=== PATIENT | female | born 1940 | race Caucasian/White ===

== ENCOUNTER → 2018-10-14 | Outpatient (CLI) | payer MEDICARE, OTHER ==
[~2018-10-14] MED LIST: ALEN70 PO; ANAS1 PO; CALCA500CH PO; CALCAVITD PO; DIGO.125 PO; ELIQUIS5 MG PO; GABA100; METO100ER PO; MULVITMIND PO
[2018-10-16 12:07] LABS: HPV 16 Negative (Negative); HPV 18 Negative (Negative); HPV OTHER HR TYPES Negative (Negative)
== END ==
LOC: LAB SHORT 11:29 → LAB 11:29
PROVIDERS: Nurse Practitioner Obstetrics & Gynecology
DX: Z91.89 Other specified personal risk factors, not elsewhere classified (principal)
CPT/HCPCS: 87624; G0123

== ENCOUNTER 2019-07-29 08:16 | Day surgery (SDC) | payer MEDICARE, OTHER ==
[~2019-07-29] VITALS: Ht 165.1 cm; Wt 69.7 kg
[~2019-07-29 08:16] MED LIST changes: +ALEN70; +ALLO300
== END 2019-07-29 10:14 | disposition home or self-care (01) ==
LOC: ORSCSDS 08:16
PROVIDERS: Surgery
PROC: 0DJD8ZZ Inspection of Lower Intestinal Tract, Via Natural or Artificial Opening Endoscopic (ICD-10-PCS; principal; 2019-07-29 10:45)
DX: Z85.038 Personal history of other malignant neoplasm of large intestine (principal); I48.91 Unspecified atrial fibrillation; I10 Essential (primary) hypertension; Z79.01 Long term (current) use of anticoagulants; Z79.899 Other long term (current) drug therapy
CPT/HCPCS: J2704; J7120

== ENCOUNTER 2020-09-14 11:03 | Day surgery (SDC) | payer MEDICARE, OTHER ==
[~2020-09-14] VITALS: Ht 165.1 cm; Wt 72.9 kg
== END 2020-09-14 13:08 | disposition home or self-care (01) ==
LOC: ORSCSDS 11:03
PROVIDERS: Surgery
PROC: 0DBL8ZX Excision of Transverse Colon, Via Natural or Artificial Opening Endoscopic, Diagnostic (ICD-10-PCS; principal; 2020-09-14 12:30)
PROC: 0DBN8ZX Excision of Sigmoid Colon, Via Natural or Artificial Opening Endoscopic, Diagnostic (ICD-10-PCS; principal; 2020-09-14 12:30)
DX: Z85.038 Personal history of other malignant neoplasm of large intestine (principal); Z15.09 Genetic susceptibility to other malignant neoplasm; K63.5 Polyp of colon; D12.3 Benign neoplasm of transverse colon; K57.30 Diverticulosis of large intestine without perforation or abscess without bleeding; Z79.899 Other long term (current) drug therapy
CPT/HCPCS: 88305; J2704; J7120

== ENCOUNTER 2023-10-19 09:14 | Day surgery (SDC) | payer MEDICARE, OTHER ==
[~2023-10-19] VITALS: Ht 165.1 cm; Wt 96.3 kg
[~2023-10-19 09:14] MED LIST changes: +ATOR40TA PO; +Amlodipine Bes2.5 MG PO; +Lactated Ringer's 1,000 ML IV ONE; +propofoL 50 ML IV ONE
[2023-10-19] MEDS ORDERED: Lactated Ringer's 1,000 ML IV ONE (10:15)
[2023-10-19] MEDS ORDERED: ePHEDrine Sulfate 50 MG/ML 1ML Injection ONE (11:37)
[2023-10-19 12:34] VITALS: BP 137/92
== END 2023-10-19 12:31 | disposition home or self-care (01) ==
LOC: ORSCSDS 09:14
PROVIDERS: Internal Medicine Gastroenterology
PROC: 0DBK8ZX Excision of Ascending Colon, Via Natural or Artificial Opening Endoscopic, Diagnostic (ICD-10-PCS; principal; 2023-10-19 10:30)
PROC: 0DBL8ZX Excision of Transverse Colon, Via Natural or Artificial Opening Endoscopic, Diagnostic (ICD-10-PCS; principal; 2023-10-19 10:30)
DX: K62.5 Hemorrhage of anus and rectum (principal); R63.4 Abnormal weight loss; D12.2 Benign neoplasm of ascending colon; D12.3 Benign neoplasm of transverse colon; K63.5 Polyp of colon; Z15.09 Genetic susceptibility to other malignant neoplasm; K57.30 Diverticulosis of large intestine without perforation or abscess without bleeding; K64.8 Other hemorrhoids; Z80.0 Family history of malignant neoplasm of digestive organs; Z85.3 Personal history of malignant neoplasm of breast; Z85.42 Personal history of malignant neoplasm of other parts of uterus; Z85.828 Personal history of other malignant neoplasm of skin; Z85.89 Personal history of malignant neoplasm of other organs and systems; I48.91 Unspecified atrial fibrillation; Z79.01 Long term (current) use of anticoagulants; I10 Essential (primary) hypertension; Z85.51 Personal history of malignant neoplasm of bladder
CPT/HCPCS: 88305; J2704; J7120

== ENCOUNTER 2024-07-29 07:26 | Day surgery (SDC) | payer MEDICARE, OTHER ==
[2024-07-29] VITALS (14 sets, daily range): BP systolic 101–149; BP diastolic 48–82
[~2024-07-29] VITALS: Ht 165.1 cm; Wt 66.5 kg
[~2024-07-29 07:26] MED LIST changes: +ACET500 PO; +ALLO100 PO; +CENTRUM SILVER1 EAC2 PO; +CIDAFLEX TABLE1 EAC1 PO; +COQ-10100 MG PO; -DIGO.125 PO; +FIBER GUMMIES PO; +GERITOL COMPLETE PO; +LANOXIN PO; -Lactated Ringer's 1,000 ML IV ONE; +PREBIOTIC FIBER2 GM PO; +TOPROL XL25 MG PO; -propofoL 50 ML IV ONE
[2024-07-29] MEDS ORDERED: Ropivacaine 0.5% HCl/Pf 123.125 MG,EPINEPHrine HCL 0.25 MG,Ketorolac Tromethamine 15 MG... INFIL SCH (07:40)
[2024-07-29] MEDS ORDERED: Chlorhexidine Mouth Care 15 ML UDC MT SCH (07:40)
[2024-07-29] MEDS ORDERED: CeFAZolin Sodium 2,000 MG in NS 100 ML IV SCH ×2 (07:40→19:00)
[2024-07-29] MEDS ORDERED: Tranexamic Acid 1,000 MG in NS 100 ML IV SCH (07:40)
[2024-07-29] MEDS ORDERED: Acetaminophen 500 MG Tab PO SCH ×2 (07:40→16:00)
[2024-07-29] MEDS ORDERED: Lactated Ringer's 1,000 ML IV SCH ×2 (07:40→09:55)
[2024-07-29] MEDS ORDERED: OxyCODONE HCL 10 MG TABCR PO SCH (07:40)
[2024-07-29] MEDS ORDERED: CeFAZolin Sodium 2,000 MG VIAL ONE (08:52)
--- NOTE | 2024-07-29 08:58 | NUR ---
History, Chart, Medications and Allergies reviewed before start of procedure. Patient confirms NPO status and agrees with scheduled surgery. Patient chooses to store glasses in personal bag. All bags labeled with patient's name and stored under gurney.
[2024-07-29] MEDS ORDERED: propofoL 0 ML IV ONE (09:24)
[2024-07-29] MEDS ORDERED: FentaNYL Citrate 50 MCG/ML 2 ML Injection ONE (09:30)
[2024-07-29] MEDS ORDERED: Metoclopramide HCl 5MG / ML 2ML Vial IV PRN (09:55)
[2024-07-29] MEDS ORDERED: HYDROmorphone HCl/Pf 1MG SYR IV PRN (09:55)
[2024-07-29] MEDS ORDERED: OxyCODONE HCL 5 MG TAB PO PRN ×2 (09:55→10:05)
[2024-07-29] MEDS ORDERED: Magnesium Hydroxide Conc 10 ML UDC PO PRN (09:55)
[2024-07-29] MEDS ORDERED: Ondansetron HCl 2 MG / ML 2ML Vial IV PRN (09:55)
[2024-07-29] MEDS ORDERED: DiphenhydrAMINE HCL 25 MG Cap PO PRN (10:00)
[2024-07-29] MEDS ORDERED: Bisacodyl 10 MG Supp PR PRN (10:00)
[2024-07-29] MEDS ORDERED: FLU VACC TS2024-25(6MOS UP)/PF 45 MCG/0.5 ML SYRINGE IM SCH (10:00)
--- NOTE | 2024-07-29 10:00 | NUR ---
IV ACCESS ATTEMPTS X2 FOR THIS RN, X3 FOR ROBYN ROLLINS RN, MAKING X5 TOTAL ATTEMPTS.
[2024-07-29] MEDS ORDERED: Promethazine HCl 25 MG Tab PO PRN (10:05)
[2024-07-29] MEDS ORDERED: propofoL 100 ML IV ONE (11:05)
[2024-07-29] MEDS ORDERED: Midazolam HCl 1MG / ML 2ML Vial ONE (11:05)
[2024-07-29] MEDS ORDERED: Ketorolac Tromethamine 15mg Vial IV SCH (12:00)
[2024-07-29] MEDS ORDERED: Digoxin 0.125 MG Tab PO SCH ×2 (18:00→21:00)
[2024-07-29] MEDS ORDERED: Metoprolol Succinate 50 MG TABCR PO SCH ×2 (18:00→21:00)
--- NOTE | 2024-07-29 20:01 | NUR ---
SHIFT SUMMARY WAS VERY GROGGY INITIALLY POST OP. AFTER SLEEPING FOR AWHILE WOKE UP WELL & WAS ABLE TO WORK w/ THERAPY. ABLE TO EAT A SMALL DINNER & VOIDED.
[2024-07-29] MEDS ORDERED: AmLODIPine Besylate 5 MG Tab PO SCH (21:00)
[2024-07-29] MEDS ORDERED: Allopurinol 100 MG Tab PO SCH (21:00)
[2024-07-29] MEDS ORDERED: Atorvastatin 40 MG Tab PO SCH (21:00)
[2024-07-29] MEDS ORDERED: Docusate Sodium 100 MG Cap PO SCH (21:00)
[2024-07-30 03:12] VITALS: BP 135/59
--- NOTE | 2024-07-30 04:40 | NUR ---
NOC SUMMARY- PT PAIN MANAGED WELL. PT AMBULATORY WITH GB AND FWW. PT VOIDING WELL. PT HAS BEEN ABLE TO REST COMFORTABLY. PT DRESSING C/D/I. PT POLAR PACK ON. CALL LIGHT IN REACH.
[2024-07-30 05:07] LABS: BASOPHILS ABSOLUTE AUTO 0.02 K/mm3 (0.00-0.23); BASOPHILS PERCENT AUTO 0 % (0-2); EOSINOPHILS ABSOLUTE AUTO 0.09 K/mm3 (0.00-0.68); EOSINOPHILS PERCENT AUTO 2 % (0-6); Hematocrit 31.3 % (33.0-51.0); Hemoglobin 10.3 g/dL (11.5-16.0); IMMATURE GRAN ABSOLUTE AUTO 0.02 K/mm3 (0.00-0.10); IMMATURE GRAN PERCENT AUTO 0 % (0-1); LYMPHOCYTES ABSOLUTE AUTO 1.09 K/mm3 (0.84-5.20); LYMPHOCYTES PERCENT AUTO 21 % (21-46); MONOCYTES ABSOLUTE AUTO 0.63 K/mm3 (0.16-1.47); MONOCYTES PERCENT AUTO 12 % (4-13); Mean Corpuscular HGB 33.7 pg (26.0-34.0); Mean Corpuscular HGB Conc 32.9 g/dL (31.5-36.5); Mean Corpuscular Volume 102 fL (80-100); Mean Platelet Volume 9.8 fL (9.1-12.4); NEUTROPHILS ABSOLUTE AUTO 3.38 K/mm3 (1.96-9.15); NEUTROPHILS PERCENT AUTO 65 % (41-73); Platelet Count 133 K/mm3 (150-400); RDW Coefficient Variation 13.2 % (11.7-14.2); RDW Standard Deviation 49.5 fL (35.1-46.3); Red Blood Cell Count 3.06 M/mm3 (3.80-5.20); White Blood Cell Count 5.23 K/mm3 (4.00-11.30)
[2024-07-30 05:42] LABS: Bun/Creatinine Ratio 20.2 (12.0-20.0); Calcium, Blood 8.5 mg/dL (8.5-10.1); Creatinine, Blood 0.79 mg/dL (0.40-1.00)
[2024-07-30] MEDS ORDERED: ELIQUIS2.5 MG PO (07:19)
[2024-07-30 07:45] VITALS: BP 134/88
[2024-07-30] MEDS ORDERED: Calcium Carbonate 500 MG Tab Chew PO ONE (08:10)
[2024-07-30] MEDS ORDERED: Multivitamins/Minerals 1 Tab PO SCH (09:00)
[2024-07-30] MEDS ORDERED: Apixaban 5 MG Tab PO SCH (09:00)
--- NOTE | 2024-07-30 10:53 | NUR ---
DISCHARGE SUMMARY POD1 L TKA, A/OX4, VSS, TOLERATING PO, AMBULATING WELL, PAIN WELL MANAGED, AQUACELL C/D/I, MARCEL WRAP OVER AQUACELL DRESSING, COMPRESSION STOCKINGS ON BLE. DISCUSSED DISCHARGE INSTRUCTIONS WITH HER INCLUDING HOME CARE, MEDICATIONS, AND FOLLOW UP APPOINTMENTS, NO QUESTIONS AT THIS TIME, ESCORTED OUT VIA WC TO PRIVATE AUTO TO GO HOME.
== END 2024-07-30 09:35 | disposition home or self-care (01) ==
LOC: ORSCMMR 07:26 → ORD 09:15 → ORSCMMR 11:00 → SURS 13:24 → ORSCMMR 07-30 09:35
PROVIDERS: Orthopaedic Surgery
PROC: 8E0Y0CZ Robotic Assisted Procedure of Lower Extremity, Open Approach (ICD-10-PCS; principal; 2024-07-29 09:15)
PROC: 0SRD0JA Replacement of Left Knee Joint with Synthetic Substitute, Uncemented, Open Approach (ICD-10-PCS; principal; 2024-07-29 09:15)
DX: M17.12 Unilateral primary osteoarthritis, left knee (principal); I48.91 Unspecified atrial fibrillation; Z79.01 Long term (current) use of anticoagulants; E78.5 Hyperlipidemia, unspecified; I12.9 Hypertensive chronic kidney disease with stage 1 through stage 4 chronic kidney disease, or unspecified chronic kidney disease; N18.9 Chronic kidney disease, unspecified; Z15.09 Genetic susceptibility to other malignant neoplasm; Z79.899 Other long term (current) drug therapy; Z85.3 Personal history of malignant neoplasm of breast; Z85.42 Personal history of malignant neoplasm of other parts of uterus; Z85.038 Personal history of other malignant neoplasm of large intestine; Z85.51 Personal history of malignant neoplasm of bladder
CPT/HCPCS: 36415; 73560-LT; 80048; 85025; 97110; 97116; 97161; 97530; A9270; C1713; C1776; J0171; J0690; J0735; J1885; J2250; J2704; J2795; J3010; J7120

== ENCOUNTER 2024-11-21 11:00 | Day surgery (SDC) | payer MEDICARE, OTHER ==
[~2024-11-21] VITALS: Ht 167.6 cm; Wt 65.4 kg
[~2024-11-21 11:00] MED LIST changes: +ELIQUIS2.5 MG PO; +Lactated Ringer's 1,000 ML IV ONE
[2024-11-21] MEDS ORDERED: GLUCHON (11:43)
[2024-11-21] MEDS ORDERED: propofoL 50 ML IV ONE (12:10)
[2024-11-21] MEDS ORDERED: Lactated Ringer's 1,000 ML IV ONE (12:15)
--- NOTE | 2024-11-21 12:35 | NUR ---
11/21/24 1235 Amy Corbett PT. DENIES ANY PAIN.
[2024-11-21 13:21] VITALS: BP 107/69
== END 2024-11-21 16:48 | disposition home or self-care (01) ==
LOC: ORSCSDS 11:00
PROVIDERS: Internal Medicine Gastroenterology
PROC: 0DJD8ZZ Inspection of Lower Intestinal Tract, Via Natural or Artificial Opening Endoscopic (ICD-10-PCS; principal; 2024-11-21 12:45)
DX: Z15.09 Genetic susceptibility to other malignant neoplasm (principal); Z85.038 Personal history of other malignant neoplasm of large intestine; Z86.0101 Personal history of adenomatous and serrated colon polyps; K63.5 Polyp of colon; K57.30 Diverticulosis of large intestine without perforation or abscess without bleeding; I48.91 Unspecified atrial fibrillation; I10 Essential (primary) hypertension; Z80.0 Family history of malignant neoplasm of digestive organs; K76.0 Fatty (change of) liver, not elsewhere classified; E78.00 Pure hypercholesterolemia, unspecified; E78.1 Pure hyperglyceridemia; Z79.01 Long term (current) use of anticoagulants; Z79.899 Other long term (current) drug therapy
CPT/HCPCS: 88305; J2704; J7120